=== PATIENT | male | born 1940 | race Caucasian/White ===

== ENCOUNTER 2018-08-03 07:29 | Day surgery (SDC) | payer OTHER ==
[~2018-08-03 07:29] MED LIST: CEFAZOLIN 2 GM/50 ML (PMX) 50 ML IVPB
[2018-08-03] MEDS: SOD CHLORIDE 0.9% 1,000 ML IV (08:24)
[2018-08-03 08:49] LABS: ADD MAN DIFF? NO
[2018-08-03 08:56] LABS: BASOPHILS % 0.5 % (0.0-2.0); EOSINOPHILS # 0.1 10^3/ul (0.0-0.5); EOSINOPHILS % 0.8 % (0.0-7.0); HEMATOCRIT 39.8 % (42.0-52.0); LYMPHOCYTES # 3.2 10^3/ul (0.8-2.9); MEAN CORPUSCULAR HEMOGLOBIN 31.3 pg (29.0-33.0); MEAN CORPUSCULAR HGB CONC 32.7 g/dl (32.0-37.0); MEAN CORPUSCULAR VOLUME 95.7 fl (82.0-101.0); MEAN PLATELET VOLUME 10.5 fl (7.4-10.4); MONOCYTES % 12.6 % (0.0-11.0); NEUTROPHIL # 3.3 10^3/ul (1.6-7.5); NEUTROPHILS % 43.8 % (39.0-77.0); PLATELET COUNT 217 10^3/UL (140-415); RED BLOOD COUNT 4.16 10^6/ul (4.70-6.10); RED CELL DISTRIBUTION WIDTH 12.6 % (11.5-14.5)
[2018-08-03 08:56] LABS: WHITE BLOOD COUNT 7.5 10^3/ul (4.8-10.8)
[2018-08-03] MEDS ORDERED: CEFAZOLIN 1 GM INJ (09:00)
[2018-08-03] MEDS ORDERED: GLYCOPYRROLATE 0.4 MG INJ (09:00)
[2018-08-03] MEDS ORDERED: ONDANSETRON 4 MG INJ (09:00)
[2018-08-03] MEDS ORDERED: NEOSTIGMINE 3 MG/3 ML SYRINGE (09:00)
[2018-08-03] MEDS ORDERED: PROPOFOL 20 ML (09:00)
[2018-08-03] MEDS ORDERED: ROCURONIUM 50 MG INJ (09:00)
[2018-08-03] MEDS ORDERED: FENTAnyl 50 MCG/ML VIAL (09:00)
[2018-08-03] MEDS ORDERED: MIDAZOLAM 1 MG/ML 2 ML INJ (09:00)
[2018-08-03] MEDS ORDERED: DEXAMETHASONE 4 MG/ML 5 ML INJ (09:01)
[2018-08-03] MEDS ORDERED: ROPIVACAINE 0.5 % 30 ML VIAL (09:03)
[2018-08-03 09:13] LABS: INR 0.99; PROTIME 13.2 Sec (11.9-14.9)
[2018-08-03 09:14] LABS: ALANINE AMINOTRANSFERASE 19 IU/L (13-69); ALBUMIN 4.8 g/dl (3.3-4.9); ALBUMIN/GLOBULIN RATIO 1.37; ALKALINE PHOSPHATASE 57 IU/L (42-121); ANION GAP 10 (5-13); ASPARTATE AMINO TRANSFERASE 24 IU/L (15-46); BILIRUBIN,INDIRECT 0.9 mg/dl (0-1.1); BILIRUBIN,TOTAL 0.9 mg/dl (0.2-1.3); CALCIUM 9.6 mg/dl (8.4-10.2); CARBON DIOXIDE 29 mmol/L (21-31); CHLORIDE 105 mmol/L (97-110); CREATININE 1.07 mg/dl (0.61-1.24); GLUCOSE 99 mg/dl (70-220); PARTIAL THROMBOPLASTIN TIME 29.4 Sec (23.0-35.0); POTASSIUM 4.2 mmol/L (3.5-5.1); SODIUM 144 mmol/L (135-144); TOTAL PROTEIN 8.3 g/dl (6.1-8.1)
[2018-08-03] MEDS ORDERED: SUGAMMADEX SODIUM 200 MG/2 ML VIAL IV (09:32)
[2018-08-03 09:39] LABS: BLOOD UREA NITROGEN 24 mg/dl (7-20)
[2018-08-03] MEDS: POLYMYXIN/BACITRACIN 1L IRRIG (10:43)
[2018-08-03] MEDS: HYDROCODONE/APAP (5/325) TAB PO (12:25)
== END 2018-08-03 12:59 | disposition home or self-care (01) ==
LOC: SDS 07:29
DX: K40.30 Unilateral inguinal hernia, with obstruction, without gangrene, not specified as recurrent (principal); I10 Essential (primary) hypertension; E78.2 Mixed hyperlipidemia; I25.9 Chronic ischemic heart disease, unspecified
CPT/HCPCS: 49507; 71045; 80053; 85025; 85610; 85730

== ENCOUNTER 2018-09-11 07:25 | Day surgery (SDC) | payer OTHER ==
[2018-09-11] MEDS: CEFAZOLIN 2 GM/50 ML (PMX) 50 ML IVPB (07:00)
[2018-09-11] MEDS: SOD CHLORIDE 0.9% 1,000 ML IV (08:37)
[2018-09-11 08:38] LABS: ADD MAN DIFF? NO
[2018-09-11 08:52] LABS: WHITE BLOOD COUNT 7.5 10^3/ul (4.8-10.8)
[2018-09-11 08:52] LABS: BASOPHILS % 0.5 % (0.0-2.0); EOSINOPHILS # 0.1 10^3/ul (0.0-0.5); EOSINOPHILS % 1.2 % (0.0-7.0); HEMATOCRIT 37.8 % (42.0-52.0); HEMOGLOBIN 12.6 g/dl (14.0-18.0); LYMPHOCYTES # 3.1 10^3/ul (0.8-2.9); LYMPHOCYTES % 41.2 % (15.0-51.0); MEAN CORPUSCULAR HGB CONC 33.3 g/dl (32.0-37.0); MEAN CORPUSCULAR VOLUME 92.9 fl (82.0-101.0); MEAN PLATELET VOLUME 10.3 fl (7.4-10.4); MONOCYTES % 13.8 % (0.0-11.0); NEUTROPHIL # 3.2 10^3/ul (1.6-7.5); NEUTROPHILS % 42.8 % (39.0-77.0); PLATELET COUNT 220 10^3/UL (140-415); RED BLOOD COUNT 4.07 10^6/ul (4.70-6.10); RED CELL DISTRIBUTION WIDTH 12.4 % (11.5-14.5)
[2018-09-11 08:56] LABS: INR 1.01; PROTIME 13.4 Sec (11.9-14.9)
[2018-09-11 08:57] LABS: PARTIAL THROMBOPLASTIN TIME 29.5 Sec (23.0-35.0)
[2018-09-11 09:03] LABS: ALANINE AMINOTRANSFERASE 16 IU/L (13-69); ALBUMIN 4.6 g/dl (3.3-4.9); ALBUMIN/GLOBULIN RATIO 1.35; ALKALINE PHOSPHATASE 53 IU/L (42-121); ANION GAP 10 (5-13); ASPARTATE AMINO TRANSFERASE 21 IU/L (15-46); BILIRUBIN,INDIRECT 0.5 mg/dl (0-1.1); BILIRUBIN,TOTAL 0.5 mg/dl (0.2-1.3); BLOOD UREA NITROGEN 16 mg/dl (7-20); CALCIUM 9.6 mg/dl (8.4-10.2); CARBON DIOXIDE 28 mmol/L (21-31); CHLORIDE 107 mmol/L (97-110); CREATININE 1.01 mg/dl (0.61-1.24); GLUCOSE 95 mg/dl (70-220); POTASSIUM 4.6 mmol/L (3.5-5.1)
[2018-09-11 09:06] LABS: SODIUM 145 mmol/L (135-144)
[2018-09-11] MEDS ORDERED: HYDROmorphONE 1 MG/5 ML IV SYRINGE IV (09:30)
[2018-09-11] MEDS ORDERED: METOCLOPRAMIDE 10 MG INJ IV (09:30)
[2018-09-11] MEDS ORDERED: FENTAnyl 50 MCG/ML VIAL IV (09:30)
[2018-09-11] MEDS ORDERED: DIPHENHYDRAMINE 50 MG INJ IV (09:30)
[2018-09-11] MEDS ORDERED: ONDANSETRON 4 MG INJ IV (09:30)
[2018-09-11] MEDS ORDERED: ALBUTEROL 0.083% (NEB) 2.5 MG/3 ML AMP HHN (09:30)
[2018-09-11] MEDS ORDERED: FENTAnyl 50 MCG/ML VIAL (09:38)
[2018-09-11] MEDS ORDERED: ROPIVACAINE 0.5 % 30 ML VIAL (09:38)
[2018-09-11] MEDS ORDERED: PROPOFOL 20 ML (10:16)
[2018-09-11] MEDS ORDERED: SUCCINYLCHOLINE CHLORIDE 100 MG/5 ML SYG IV (10:16)
[2018-09-11] MEDS ORDERED: SUGAMMADEX SODIUM 200 MG/2 ML VIAL IV (10:17)
[2018-09-11] MEDS ORDERED: CEFAZOLIN 1 GM INJ (10:17)
[2018-09-11] MEDS ORDERED: ROCURONIUM 50 MG INJ (10:17)
[2018-09-11] MEDS ORDERED: LIDOCAINE 100 MG SYRINGE (10:17)
[2018-09-11] MEDS: HYDROmorphONE 1 MG/5 ML IV SYRINGE IV ×2 (10:56→11:05)
[2018-09-11] MEDS: HYDROCODONE/APAP (5/325) TAB PO (11:07)
[2018-09-11] MEDS: FENTAnyl 50 MCG/ML VIAL IV (11:11)
[2018-09-11] MEDS: POLYMYXIN/BACITRACIN 1L IRRIG (13:55)
== END 2018-09-11 12:55 | disposition home or self-care (01) ==
LOC: SDS 07:25
DX: K40.30 Unilateral inguinal hernia, with obstruction, without gangrene, not specified as recurrent (principal); I10 Essential (primary) hypertension; E78.5 Hyperlipidemia, unspecified; I25.10 Atherosclerotic heart disease of native coronary artery without angina pectoris
CPT/HCPCS: 49507; 80053; 85025; 85610; 85730; 93005